=== PATIENT | male | born 1995 ===

== ENCOUNTER 2018-04-17 06:26 | Day surgery (SDC) | payer BC ==
[~2018-04-17] VITALS: Ht 172.7 cm; Wt 56.7 kg
[2018-04-17] VITALS (10 sets, daily range): BP systolic 115–136; BP diastolic 71–82
[2018-04-17] MEDS ORDERED: LR 1000ml 1,000 ML IVLG SCH ×2 (06:42→07:00)
--- NOTE | 2018-04-17 06:44 | Anethesia Preoperative Eval ---
Anesthesia Pre-op PMH/ROS General Date of Evaluation: Apr 17, 2018 Time of Evaluation: 06:43 Anesthesiologist: julia ASA Score: ASA 1 Mallampati Score Class I : Soft palate, uvula, fauces, pillars visible Class II: Soft palate, uvula, fauces visible Class III: Soft palate, base of uvula visible Class IV: Only hard plate visible Mallampati Classification: Class I Surgeon: natividad Diagnosis: constipation, abdominal bloating Surgical Procedure: egd/colonoscopy Anesthesia History: none Social History: smoking - onsmoker Family History: no anesthesia problems Allergies: Coded Allergies: No Known Allergies (Unverified , 04/17/18) Medications: see eMAR Past Medical History Gastrointestinal/Genitourinary: Reports: other - constipation, abdominal bloating Anesthesia Pre-op Phys. Exam Physician Exam Constitutional: NAD Neurologic: CN 2-12 intact Cardiovascular: RRR Respiratory: CTA Gastrointestinal: S/NT/ND Airway Exam Mallampati Score: Class II MO: full Neck: supple TMD: 2fb ROM: full Teeth: intact Anesthesia Pre-op A/P Risk Assessment & Plan Assessment: asa1 Plan: mac Status Change Before Surgery: No Pre-Antibiotics Drug: Edith Wing MD Apr 17, 2018 06:44
[2018-04-17] MEDS ORDERED: DiphenhydrAMINE 50mg/ml Inj IVP PRN (06:45)
[2018-04-17] MEDS ORDERED: Labetalol 5mg/ml 20ml vial IV PRN (06:45)
[2018-04-17] MEDS ORDERED: Midazolam 2mg/2ml Inj IVP PRN (06:45)
[2018-04-17] MEDS ORDERED: Atropine Inj 1mg/10ml Syr IV PRN (06:45)
[2018-04-17] MEDS ORDERED: fentaNYL 100 mcg/2 mL IV PRN (06:45)
[2018-04-17] MEDS ORDERED: Glycopyrrolate 0.2mg/ml 1ml Vial ONE (07:00)
[2018-04-17] MEDS ORDERED: NKM (07:00)
[2018-04-17] MEDS ORDERED: Glucagon 1mg Inj ONE (07:00)
[2018-04-17] MEDS ORDERED: LR 1000ml ONE (07:00)
[2018-04-17] MEDS ORDERED: Lidocaine 1% MPF 10mg/ml 5ml ONE (07:00)
[2018-04-17] MEDS ORDERED: Propofol 200mg/20ml IV ONE (07:00)
--- NOTE | 2018-04-17 07:14 | Short Stay Surgery H&P ---
History of Present Illness History of Present Illness Chief Complaint see typed H&P HPI Jerry Salinas is a 22 year old male who was admitted on for Nausea, Irregular Bowel Habit Patient History Allergies: Coded Allergies: No Known Allergies (Unverified , 04/17/18) Medication History Scheduled No Known Medications* (NKM - No Known Medications*), 0 ., (Reported) Physical Exam Vital Signs Last Vital Signs Date Time Temp Pulse Resp B/P (MAP) Pulse Ox O2 Delivery O2 Flow Rate FiO2 04/17/18 06:54 98.7 80 18 126/75 (92) 100 98.7 04/17/18 06:48 Room Air Plan Attestation Are the patient's medical conditions optimized for surgery? Damari Stone MD Apr 17, 2018 07:13
--- NOTE | 2018-04-17 07:14 | Pre-Procedure Note/Attestation ---
Pre-Procedure Note/Attestation Complete Prior to Procedure Planned Procedure: not applicable Procedure Narrative: EGD,colon Indications for Procedure Pre-Operative Diagnosis: abd pain, BRB, N/V Attestation I attest that I discussed the nature of the procedure; its benefits; risks and complications; and alternatives (and the risks and benefits of such alternatives ), prior to the procedure, with the patient (or the patient's legal regional sales representative). I attest that, if there was a reasonable possibility of needing a blood transfusion, the patient (or the patient's legal regional sales representative) was given the [facility] standardized written summary, pursuant to the [place] Blood Safety Act ([place] Health and Safety Code # 1645, as amended). I attest that I re-evaluated the patient just prior to the surgery and that there has been no change in the patient's H&P, except as documented below: Damari Stone MD Apr 17, 2018 07:14
--- NOTE | 2018-04-17 09:02 | Immediate Post-Op Evaluation ---
Immediate Post-Op Evalulation Immediate Post-Op Evalulation Procedure: egd/colonoscopy/bx Date of Evaluation: Apr 17, 2018 Time of Evaluation: 08:51 IV Fluids: 700ml lr Blood Products: none Estimated Blood Loss: negligible Blood Pressure Systolic: 136 Blood Pressure Diastolic: 79 Pulse Rate: 59 Respiratory Rate: 18 O2 Sat by Pulse Oximetry: 100 Temperature (Fahrenheit): 97.0 Pain Score (1-10): 0 Nausea: No Vomiting: No Complications none Patient Status: awake, reacts, patent Hydration Status: adequate Drug: Edith Wing MD Apr 17, 2018 09:02
--- NOTE | 2018-04-17 09:03 | 48 Hour Post Anesthesia Eval ---
Post Anesthesia Evaluation Procedure: egd/colonoscopy/bx Date of Evaluation: Apr 17, 2018 Time of Evaluation: 08:53 Blood Pressure Systolic: 126 0: 75 Pulse Rate: 59 Respiratory Rate: 18 Temperature (Fahrenheit): 97.0 O2 Sat by Pulse Oximetry: 100 Airway: patent Nausea: No Vomiting: No Pain Intensity: 0 Hydration Status: adequate Cardiopulmonary Status: stable Mental Status/LOC: patient returned to baseline Post-Anesthesia Complications: none Follow-up care needed: N/A Edith Haile MD Apr 17, 2018 09:03
--- NOTE | 2018-04-17 21:29 | Endoscopy Procedure Note ---
Endoscopy Procedure Note General Indication for Procedure: nausea, abd pain, bloat , constipation, BRB Procedures Performed: EGD, colonoscopy Operative Findings/Diagnosis: minimal LINDA erosions, tortuous and spastic colon - exam to hepatic flexure Specimen: yes Pt Tolerated Procedure Well: Yes Estimated Blood Loss: none Anesthesia Anesthesiologist: Jun Lynch Anesthesia: MAC, moderate sedation Medications Medication Given: see anesthesia record Inserted Devices Implant(s) used?: No GI Core Measures 50 yrs or older w/o bx or poly: Not Applicable 10yrs. F/U not recommended: Not Applicable If not recommended, why?: Damari Stone MD Apr 17, 2018 21:29
--- NOTE | 2018-04-17 21:31 | Brief Operative Note ---
Immediate Post Operative Note Operative Note Chief Complaint: nausea, abd pain, constip, bloat , BRB Pre-op Diagnosis: abd pain, BRB, N/V Procedure: EGD/bx, colon/bx Post-op Diagnosis: minimal LINDA erosions, tortuous and spastic colon - exam to hepatic flexure Surgeon: natividad Anesthesiologist: Jun Lynch Anesthesia: moderate sedation Specimen: yes Complications: none Condition: stable Fluids: recorded Estimated Blood Loss: none Drains: none Implant(s) used?: No Damari Stone MD Apr 17, 2018 21:31
--- NOTE | 2018-04-17 23:30 | Operative Note - Dictated ---
DATE OF OPERATION: 04/17/2018 PROCEDURE: Upper gastrointestinal endoscopy with biopsy as well as colonoscopy to rule out hepatic flexure with biopsy. SURGEON: Damari Stone M.D. ANESTHESIA: Please see the separate anesthesiologist notes for details. PRE-ENDOSCOPIC DIAGNOSIS: Nausea, history of vomiting, abdominal discomfort and bloating, and constipation with occasional blood in stool. POST-ENDOSCOPIC DIAGNOSES: 1. Minimal erosive change in the lower esophagus with mild gastroesophageal reflux. 2. Redundant and tortuous colonic contour with spasm making it not possible to go beyond hepatic flexure. DESCRIPTION OF PROCEDURE: The procedure, its risks, and indications were explained to the patient at length and informed consent was obtained. The patient was then sedated in the left lateral decubitus position and a diagnostic upper endoscope was introduced through the oropharynx and advanced to the duodenum. The endoscope was then gradually withdrawn and the mucosa was examined carefully. Examination of the upper gastrointestinal mucosa revealed minimal degree of erosion in the gastroesophageal junction consistent with mild gastroesophageal reflux. Random biopsy of the duodenum, antrum, and lower esophagus was sent to pathology for review. Thereafter, rectal exam was done and the colonoscope was introduced into the rectum and advanced to the splenic flexure. Advancement was difficult due to redundancy and tortuosity of colonic contour and also frequent colonic spasms. The patient was given both glycopyrrolate and glucagon to reduce spasm and also the position was changed from left lateral decubitus to supine to the right lateral decubitus, but further advancement beyond hepatic flexure could not be obtained. The colonoscope was then gradually withdrawn and the mucosa was examined carefully. Random biopsies of the left colon was sent to pathology for review. No mucosal changes were identified. The patient was left to recovery in stable condition. ASSESSMENT: The above examination was notable for a mild degree of gastroesophageal reflux, which could be either primary or secondary process. The biopsies will be evaluated to rule out any microscopic disease. The patient had a redundant colon, which could perhaps explain his chronic constipation. However, the terminal ileum could not be reached and this was the area that would want to be evaluated to rule out inflammatory bowel disease. The patient can undergo an outpatient capsule endoscopy to evaluate the distal small bowel and also he can undergo a barium enema to evaluate the left colon. These options will be discussed with the patient in followup. RECOMMENDATIONS: 1. Resume oral diet as instructed. 2. Follow up biopsy results. 3. Outpatient followup. 4. Considerations to outpatient capsule endoscopy and/or barium enema. Damari Stone M.D. DR: KAYLEEN JOB#: [id number] CC:
== END 2018-04-17 10:05 | disposition home or self-care (01) ==
LOC: GAS 06:26
DX: K29.50 Unspecified chronic gastritis without bleeding (principal); K21.9 Gastro-esophageal reflux disease without esophagitis; K63.89 Other specified diseases of intestine; K58.9 Irritable bowel syndrome, unspecified
CPT/HCPCS: 43239; 45380; J1610; J2704; J7120; 94003; 94150